=== PATIENT | female | born 1995 | race Hispanic/Latino ===

== ENCOUNTER 2016-11-15 14:24 | Emergency (ER) | payer OTHER ==
[~2016-11-15] VITALS: Ht 165.1 cm; Wt 79.5 kg
[~2016-11-15 14:24] MED LIST: BACTRIM DS1 TAB PO; NO
[2016-11-15] MEDS ORDERED: NAPROSYN500 MG PO (18:03)
[2016-11-15 18:05] VITALS: BP 132/72
== END 2016-11-15 18:08 | disposition home or self-care (01) | DRG 556 ==
LOC: ED 14:24
DX: M79.632 Pain in left forearm (principal); M25.532 Pain in left wrist; V43.52XA Car driver injured in collision with other type car in traffic accident, initial encounter

== ENCOUNTER 2017-12-15 12:43 | Emergency (ER) | payer SELFPAY ==
[~2017-12-15] VITALS: Ht 165.1 cm; Wt 81.8 kg
[~2017-12-15 12:43] MED LIST changes: +NAPROSYN500 MG PO
[2017-12-15] MEDS ORDERED: FOLIC ACID1 MG PO (13:00)
[2017-12-15 14:21] VITALS: BP 137/89
== END 2017-12-15 14:24 | disposition home or self-care (01) | DRG 605 ==
LOC: ED 12:43
DX: S91.202A Unspecified open wound of left great toe with damage to nail, initial encounter (principal); W22.09XA Striking against other stationary object, initial encounter; Y92.219 Unspecified school as the place of occurrence of the external cause

== ENCOUNTER 2020-05-21 16:25 | Emergency (ER) | payer SELFPAY ==
[~2020-05-21] VITALS: Ht 165.1 cm; Wt 60.0 kg
[~2020-05-21 16:25] MED LIST changes: +FOLIC ACID1 MG PO
[2020-05-21] MEDS ORDERED: BUPROPION HCL150 M1 PO (17:00)
[2020-05-21 17:32] LABS: HEMATOCRIT 41.9 % (37.0-47.0); HEMOGLOBIN 13.6 g/dl (12.0-16.0); IMMATURE GRANULOCYTES 0.3 % (0.0-5.0); MEAN CELL VOLUME 87.5 fL CALC (80.0-100.0); MEAN CORPUSCULAR HGB 28.4 pG CALC (26.0-32.0); MEAN CORPUSCULAR HGB CONC 32.5 g/dL CAL (32.0-36.0); NEUT# 5.65 thou/uL (2.00-7.15); RED BLOOD COUNT 4.79 mill/uL (4.20-5.60); RED CELL DISTRI WIDTH 14.5 % (11.5-15.5)
[2020-05-21 17:49] LABS: ALBUMIN 5.1 g/dL (3.2-5.0); ALKALINE PHOSPHATASE 73 u/l (38-126); ANION GAP 15 (6-22 (CALC)); BILIRUBIN, TOTAL 0.4 mg/dL (0.0-1.4); BUN 9 mg/dL (7-17); BUN/CREATININE RATIO 14 (12-20 (CALC)); CARBON DIOXIDE 24 mmol/l (22-30); CHLORIDE 103 mmol/l (95-108); CREATININE 0.6 mg/dL (0.5-1.0); GFR > 60 ML/MIN (>=60 (CALC)); GFR FOR AFR.AMER. > 60 ML/MIN (>=60 (CALC)); SGOT/AST 25 u/l (14-36); SODIUM 138 mmol/l (137-146); TOTAL PROTEIN 8.6 g/dL (6.3-8.2)
[2020-05-21 18:12] LABS: URINE BILIRUBIN - DIPSTICK NEGATIVE (NEGATIVE); URINE BLOOD DIPSTICK NEGATIVE (NEGATIVE); URINE COLOR YELLOW; URINE GLUCOSE - DIPSTICK NEGATIVE (NEGATIVE); URINE KETONE 15 mg/dL (NEGATIVE); URINE LEUK ESTERASE NEGATIVE (NEGATIVE); URINE NITRITE - DIPSTICK NEGATIVE (Negative); URINE PROTEIN - DIPSTICK NEGATIVE (NEG-TRACE); URINE SPECIFIC GRAVITY 1.025; URINE UROBILINOGEN - DIPSTICK 0.2 E.U./dL (0.2)
[2020-05-21 18:40] VITALS: BP 121/74
== END 2020-05-21 18:40 | disposition designated cancer center or children's hospital (05) | DRG 881 ==
LOC: ED 16:25
DX: F32.9 Major depressive disorder, single episode, unspecified (principal); F41.9 Anxiety disorder, unspecified; R45.851 Suicidal ideations